=== PATIENT | female | born 1970 | race Caucasian/White ===

== ENCOUNTER 2019-07-09 06:57 | Day surgery (SDC) | payer MEDICAID ==
[~2019-07-09] VITALS: Ht 160 cm; Wt 117.9 kg
[2019-07-09] MEDS ORDERED: PROPOFOL 200MG/ 20ML VIAL (DIPRIVAN) IV ONE (09:35)
[2019-07-09] MEDS ORDERED: KETOROLAC TROMETHAMINE 30 MG VIAL IVP ONE (09:35)
[2019-07-09] MEDS ORDERED: ONDANSETRON HCL 4 MG/2 ML VIAL IVP ONE (09:35)
[2019-07-09] MEDS ORDERED: fentaNYL CITRATE 250 MCG/5 ML AMP IV ONE (09:35)
[2019-07-09] MEDS ORDERED: MIDAZOLAM HCL 5 MG/5 ML VIAL IVP ONE (09:35)
[2019-07-09] MEDS ORDERED: SEVOFLURANE 15 MIN GAS INH ONE (09:35)
[2019-07-09] MEDS ORDERED: NS 1000 ML IV.SOLN IV ONE (09:35)
[2019-07-09] MEDS ORDERED: LR 1,000 ML IV.SOLN IV ONE (09:35)
[2019-07-09] MEDS ORDERED: LR 1,000 ML IV SCH (09:53)
[2019-07-09] MEDS ORDERED: MEPERIDINE HCL/PF 25 MG/ML DISP.SYRIN IVP PRN (10:00)
[2019-07-09] MEDS ORDERED: METOCLOPRAMIDE HCL 10 MG/2 ML VIAL IVP PRN (10:00)
[2019-07-09] MEDS ORDERED: MEPERIDINE HCL/PF 50 MG/ML AMP IVP PRN ×2 (10:00)
[2019-07-09 11:44] VITALS: BP_SYST 138
== END 2019-07-09 11:30 | disposition home or self-care (01) ==
LOC: SMU 06:57 → SDS 06:57
PROVIDERS: ATTEND Obstetrics & Gynecology
DX: N92.0 Excessive and frequent menstruation with regular cycle (principal); I10 Essential (primary) hypertension; E66.3 Overweight; E11.9 Type 2 diabetes mellitus without complications; M19.90 Unspecified osteoarthritis, unspecified site; Z88.0 Allergy status to penicillin; Z98.890 Other specified postprocedural states; Z88.8 Allergy status to other drugs, medicaments and biological substances
CPT/HCPCS: 58563; J1885; J2250; J2405; J2704; J3010; J7030; J7120